=== PATIENT | female | born 1965 | race Two or more races ===

== ENCOUNTER 2022-02-05 21:48 | Emergency (ER) | payer BC ==
[~2022-02-05] VITALS: Ht 165.1 cm; Wt 56.2 kg
[2022-02-05] MEDS ORDERED: KETOROLAC TROMETHAMINE 30 MG/ML VIAL IV STA (22:05)
[2022-02-05] MEDS ORDERED: METHYLPREDNISOLONE SOD SUCC 125 MG/2ML VIAL IV STA (22:05)
[2022-02-05] MEDS ORDERED: SODIUM CHLORIDE 0.9% 1000ML 1,000 ML IV STA (22:05)
[2022-02-05] MEDS ORDERED: METOCLOPRAMIDE HCL 10 MG/2ML VIAL IV STA (22:05)
[2022-02-05] MEDS ORDERED: DIPHENHYDRAMINE HCL INJ 50 MG/ML VIAL IV STA (22:05)
[2022-02-05 22:23] LABS: BASOPHILS # (AUTO) 0.1 (0.0-0.1); BASOPHILS % 0.9 % (0.0-1.0); EOSINOPHILS # (AUTO) 0.2 (0.0-0.4); EOSINOPHILS % 2.4 % (0.0-6.0); HEMATOCRIT 38.6 % (34.2-44.1); HEMOGLOBIN 12.2 g/dL (12.0-16.0); LYMPHOCYTES # (AUTO) 2.7 (1.0-3.2); LYMPHOCYTES % 38.2 % (18.0-39.1); MEAN CORPUSCULAR HEMOGLOBIN 27.2 pg (28-32); MEAN CORPUSCULAR HGB CONC 31.6 g/dL (31-35); MONOCYTES # (AUTO) 0.5 (0.2-0.8); MONOCYTES % 7.5 % (4.4-11.3); NEUTROPHILS # (AUTO) 3.5 (2.1-6.9); NEUTROPHILS % 50.9 % (38.7-80.0); PLATELET COUNT 308 x10e3/uL (140-360); RED BLOOD COUNT 4.49 x10e6/uL (3.6-5.1); RED CELL DISTRIBUTION WIDTH 13.2 % (11.7-14.4)
[2022-02-05 22:40] LABS: ALBUMIN 4.5 g/dL (3.5-5.0); ALBUMIN/GLOBULIN RATIO 1.2 (0.8-2.0); ANION GAP 16.8 mmol/L (8-16); CALCIUM 10.1 mg/dL (8.4-10.2); CREATININE, SERUM 1.03 mg/dL (0.57-1.11); POTASSIUM 4.8 mmol/L (3.5-5.1)
[2022-02-06] MEDS ORDERED: FIORICET 50-301 EACH PO (00:04)
== END 2022-02-06 00:30 | disposition home or self-care (01) ==
LOC: ER 21:53
DX: R51.9 Headache, unspecified (principal)
CPT/HCPCS: 36415; 70450; 80053; 85025; 99283; J1200; J1885; J2765; J2930; J7030

== ENCOUNTER 2022-03-29 12:50 | Emergency (ER) | payer BC ==
[~2022-03-29] VITALS: Ht 165.1 cm; Wt 56.2 kg
[~2022-03-29 12:50] MED LIST: FIORICET 50-301 EACH PO
[2022-03-29] MEDS ORDERED: ONDANSETRON HCL INJ 2MG/ML 2ML 2 MG/ML VIAL IV STA ×2 (13:42)
[2022-03-29] MEDS ORDERED: BEBTELOVIMAB 175 MG INJ IV ONE (13:45)
[2022-03-29] MEDS ORDERED: ONDANSETRON HCL INJ 2MG/ML 2ML 2 MG/ML VIAL ONE (14:03)
[2022-03-29] MEDS ORDERED: SODIUM CHLORIDE 0.9% 100 ML ONE (14:04)
[2022-03-29] MEDS ORDERED: IBUPROFEN 600 MG TAB ONE (14:05)
[2022-03-29] MEDS ORDERED: IBUPROFEN 600 MG TAB PO STA (14:08)
[2022-03-29] MEDS ORDERED: ONDANSETRON ODT4 MG PO (14:14)
[2022-03-29 15:00] VITALS: BP 108/66
== END 2022-03-29 15:02 | disposition home or self-care (01) ==
LOC: FSED 13:18
DX: U07.1 COVID-19 (principal); R50.9 Fever, unspecified; R05.9 Cough, unspecified
CPT/HCPCS: 99283; J2405; J7050

== ENCOUNTER 2024-05-30 21:33 | Emergency (ER) | payer BC ==
[~2024-05-30] VITALS: Ht 165.1 cm; Wt 54.9 kg
[~2024-05-30 21:33] MED LIST changes: +ONDANSETRON ODT4 MG PO
[2024-05-30] MEDS: SODIUM CHLORIDE 0.9% 1000ML 1,000 ML IV STA (22:27)
[2024-05-30] MEDS: ACETAMINOPHEN 325 MG TAB PO STA (22:32)
[2024-05-30 22:33] LABS: BASOPHILS % 0.4 % (0.0-1.0); EOSINOPHILS # (AUTO) 0.1 (0.0-0.4); EOSINOPHILS % 1.1 % (0.0-6.0); HEMATOCRIT 39.2 % (34.2-44.1); HEMOGLOBIN 12.3 g/dL (12.0-16.0); LYMPHOCYTES % 18.5 % (18.0-39.1); MEAN CORPUSCULAR HEMOGLOBIN 27.8 pg (28-32); MEAN CORPUSCULAR HGB CONC 31.4 g/dL (31-35); MEAN CORPUSCULAR VOLUME 88.7 fL (81-99); MONOCYTES # (AUTO) 0.5 (0.2-0.8); MONOCYTES % 9.7 % (4.4-11.3); NEUTROPHILS # (AUTO) 3.7 (2.1-6.9); NEUTROPHILS % 70.1 % (38.7-80.0); PLATELET COUNT 240 x10e3/uL (140-360); RED BLOOD COUNT 4.42 x10e6/uL (3.6-5.1); RED CELL DISTRIBUTION WIDTH 13.5 % (11.7-14.4); WHITE BLOOD COUNT 5.34 x10e3/uL (4.8-10.8)
[2024-05-30 22:55] VITALS: PULSE 89; RESP 19; TEMP 99.2
[2024-05-30 22:56] LABS: ALBUMIN/GLOBULIN RATIO 1.2 (0.8-2.0); ANION GAP 14.7 mmol/L (8-16); BILIRUBIN,TOTAL 0.2 mg/dL (0.2-1.2); CALCIUM 9.9 mg/dL (8.4-10.2); CREATININE, SERUM 0.8 mg/dL (0.57-1.11); POTASSIUM 4.7 mmol/L (3.5-5.1); TOTAL PROTEIN 7.3 g/dL (6.5-8.1)
[2024-05-30] MEDS: IBUPROFEN 600 MG TAB PO STA (23:01)
[2024-05-30] MEDS: ONDANSETRON HCL INJ 2MG/ML 2ML 2 MG/ML VIAL IV STA (23:04)
[2024-05-30 23:14] LABS: CLARITY,URINE CLEAR (CLEAR); COLOR,URINE YELLOW (YELLOW); PH,URINE 6 (5 - 7)
[2024-05-30 23:15] LABS: BILIRUBIN,URINE NEGATIVE (NEGATIVE); GLUCOSE, URINE NEGATIVE (NEGATIVE); KETONES,URINE NEGATIVE (NEGATIVE); LEUKOCYTE ESTERASE ,URINE NEGATIVE (NEGATIVE); NITRITE,URINE NEGATIVE (NEGATIVE); PROTEIN,URINE DIPSTICK NEGATIVE (NEGATIVE); URINE UROBILINOGEN 0.2 mg/dL (0.2 - 1)
[2024-05-30 23:16] LABS: BACTERIA,URINE FEW /HPF; EPITHELIAL CELLS,URINE RARE /LPF; WBC,URINE (MAN) 0-5 /HPF (0-5)
[2024-05-30] MEDS ORDERED: ONDANSETRON ODT4 MG PO (23:51)
[2024-05-30] MEDS ORDERED: PAXLOVID 300-11 EAC1 PO (23:51)
[2024-05-31 00:21] VITALS: BP 115/86; PULSE 83; RESP 17; TEMP 98.3; O2SAT 100
== END 2024-05-31 00:22 | disposition home or self-care (01) ==
LOC: ER 22:15
DX: R50.9 Fever, unspecified (principal); U07.1 COVID-19; R53.83 Other fatigue
CPT/HCPCS: 36415; 80053; 81001; 85025; 87400; 99284; J2405; J7030; U0002